=== PATIENT | male | born 1960 | race Caucasian/White ===

== ENCOUNTER → 2023-06-25 12:13 | Outpatient (REF) | payer OTHER, SELFPAY | LOC: RCS 12:13 | PROVIDERS: ATTENDING PHYSICIAN Internal Medicine Cardiovascular Disease; FAMILY PHYSICIAN Family Medicine | DX: R07.9 Chest pain, unspecified (principal); E78.00 Pure hypercholesterolemia, unspecified; I35.1 Nonrheumatic aortic (valve) insufficiency; R06.02 Shortness of breath | CPT/HCPCS: 93017; 93350 ==

== ENCOUNTER → 2023-11-24 07:53 | Outpatient (REF) | payer MEDICARE, BC, SELFPAY | LOC: RCS 07:53 | PROVIDERS: ATTENDING PHYSICIAN Internal Medicine Cardiovascular Disease; FAMILY PHYSICIAN Family Medicine | DX: I35.1 Nonrheumatic aortic (valve) insufficiency (principal) | CPT/HCPCS: 93306 ==

== ENCOUNTER → 2024-04-07 14:04 | Outpatient (REF) | payer MEDICARE, BC, SELFPAY | LOC: RAD 14:04 | PROVIDERS: ATTENDING PHYSICIAN Orthopaedic Surgery; FAMILY PHYSICIAN Family Medicine | DX: M19.011 Primary osteoarthritis, right shoulder (principal) | CPT/HCPCS: 73200 ==

== ENCOUNTER 2024-05-10 06:06 | Day surgery (SDC) | payer MEDICARE, BC, SELFPAY ==
[2024-04-15 13:15] VITALS: BMI 25.7
[2024-04-15 13:53] LABS: Hematocrit 48.6 % (39.0-52.0); Hemoglobin 15.8 g/dL (13.0-18.0); Mean Corp Hgb Conc. 32.5 g/dL (33.0-37.0); Mean Corpuscular Volume 95.3 fL (80.0-94.0); Mean Platelet Volume 8.8 fL (7.4-10.4); Platelet Count 277 10^3/uL (130-400); Red Cell Dist. Width 13.1 % (11.5-14.5); White Blood Cell Count 9.3 10^3/uL (4.8-10.8)
[2024-04-15 14:27] LABS: ALT (SGPT) 30 U/L (0-50); AST (SGOT) 32 U/L (17-59); Albumin 4.5 g/dl (3.5-5.0); Alkaline Phosphatase 70 U/L (38-126); Blood Urea Nitrogen 26 mg/dl (9-20); Calcium 9.4 mg/dl (8.4-10.2); Carbon Dioxide 32 mmol/L (22-30); Chloride 96 mmol/L (98-107); Estimated Creatinine Clearance 98 ml/min; Glucose 63 mg/dl (70-99); Potassium 4.5 mmol/L (3.5-5.1); Sodium 140 mmol/L (135-145); Total Bilirubin 0.5 mg/dl (0.2-1.3); Total Protein 7.3 g/dl (6.3-8.2); eGFR > 60.00
[2024-04-15 14:37] LABS: Glycohemoglobin (HgbA1c) 5.5 % (4.0-5.6)
[2024-05-04 08:40] VITALS: BMI 25.7
[2024-05-10] VITALS (9 sets, daily range): BP systolic 106–137; BP diastolic 58–90; BMI 25.7
--- NOTE | 2024-05-10 07:25 | W.DS.TRANS ---
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
-
Discharge Instructions:
Sleep Apnea Risk Low
Discharge Diagnosis/Procedures R NAKIA Sapp 05/09/24
Diet As tolerated
Activity No strenuous activity
Driving Restrictions No driving
Instructions:
Stand-Alone Forms: SDS Total Shoulder D/C Inst.
Changes to Home Medications: Yes
Discharge Medications:
DC Medications w/original date entered in [employer]
atorvastatin 20 mg tablet 20 mg PO DAILY 05/04/24
escitalopram oxalate 20 mg tablet (Lexapro) 20 mg PO DAILY 05/04/24
acetaminophen 325 mg tablet (Tylenol) 650 mg (2 x 325 mg) PO QID #1 tab 05/10/24
aspirin 325 mg tablet 325 mg PO DAILY blood clot prevention #1 tab 05/10/24
celecoxib 100 mg capsule 100 mg PO BID Anti-inflammatory #14 caps 05/10/24
dexamethasone 4 mg tablet 4 mg PO BID inflammation #6 tabs 05/10/24
docusate sodium 100 mg capsule (Colace) 100 mg PO BID stool softner #1 cap 05/10/24
hydromorphone 2 mg tablet 2 - 4 mg (1 - 2 x 2 mg) PO Q6H PRN 1 tab moderate pain, 2 severe #20 tabs 05/10/24
magnesium hydroxide 400 mg/5 mL oral suspension (Milk of Magnesia) 30 ml PO HS PRN Constipation #1 mL 05/10/24
ondansetron 4 mg disintegrating tablet 4 mg PO Q6H PRN n/v #20 tabs 05/10/24
sennosides 8.6 mg tablet (Senokot) 17.2 mg (2 x 8.6 mg) PO BID laxative #2 tabs 05/10/24
Home Medication Changes
acetaminophen 325 mg tablet (Tylenol) 650 mg (2 x 325 mg) PO QID #1 tab 05/10/24
aspirin 325 mg tablet 325 mg PO DAILY blood clot prevention #1 tab 05/10/24
celecoxib 100 mg capsule 100 mg PO BID Anti-inflammatory #14 caps 05/10/24
dexamethasone 4 mg tablet 4 mg PO BID inflammation #6 tabs 05/10/24
docusate sodium 100 mg capsule (Colace) 100 mg PO BID stool softner #1 cap 05/10/24
hydromorphone 2 mg tablet 2 - 4 mg (1 - 2 x 2 mg) PO Q6H PRN 1 tab moderate pain, 2 severe #20 tabs 05/10/24
magnesium hydroxide 400 mg/5 mL oral suspension (Milk of Magnesia) 30 ml PO HS PRN Constipation #1 mL 05/10/24
ondansetron 4 mg disintegrating tablet 4 mg PO Q6H PRN n/v #20 tabs 05/10/24
sennosides 8.6 mg tablet (Senokot) 17.2 mg (2 x 8.6 mg) PO BID laxative #2 tabs 05/10/24
Pending Results: No
[2024-05-10] MEDS: CELEBREX 200 MG PO (07:54)
[2024-05-10] MEDS: TYLENOL 1000 MG PO (07:59)
[2024-05-10] MEDS: NORMOSOL-R/PLASMALYTE-A 1000 IV (08:15)
--- NOTE | 2024-05-10 08:21 | PTCARENOTE ---
Patient stuck twice by [employer] ARAGON and unsuccessful sticks. 1 successful stick by Arlyn ARAGON.
--- NOTE | 2024-05-10 08:22 | PTCARENOTE ---
Shoulder immobilizer sent to the OR with patient.
[2024-05-10] MEDS: ZOFRAN 4 MG IV (11:35)
[2024-05-10] MEDS: ANCEF 5 IV (13:18)
== END 2024-05-10 13:40 | disposition home or self-care (01) ==
LOC: SDS 06:06
PROVIDERS: ATTENDING PHYSICIAN Specialist; FAMILY PHYSICIAN Family Medicine; REFERRING PHYSICIAN Internal Medicine Cardiovascular Disease
PROC: 0RRJ0JZ Replacement of Right Shoulder Joint with Synthetic Substitute, Open Approach (ICD-10-PCS; 2024-05-10)
PROC: 0LS30ZZ Reposition Right Upper Arm Tendon, Open Approach (ICD-10-PCS; 2024-05-10)
DX: M19.011 Primary osteoarthritis, right shoulder (principal)
CPT/HCPCS: 23472; 36415; 73020; 80053; 83036; 85027; 87070; C1713; C1776